=== PATIENT | female | born 1955 | race Caucasian/White ===

== ENCOUNTER 2016-08-10 18:02 | Emergency (ER) | payer MEDICARE, BC ==
[~2016-08-10] VITALS: Ht 167.6 cm; Wt 113.6 kg
[~2016-08-10 18:02] MED LIST: AMIODARONE 900 MG INJ ONE; DEXTROSE 5% WATER 500 ML BAG ONE; DOPamine-D5W 1.6 MG/ML 250 ML ONE; EPINEPHrine 0.1 MG/ML SYG ONE; ETOMIDATE 20 MG INJ ONE; NA BICARBONATE 8.4% 50 ML SYG ONE; ROCURONIUM 50 MG INJ ONE
[2016-08-10 18:03] VITALS: Ht 167.6 cm; Wt 113.6 kg
[2016-08-10] MEDS ORDERED: ROCURONIUM 50 MG INJ IV STA (18:12)
[2016-08-10] MEDS ORDERED: ETOMIDATE 20 MG INJ IV STA (18:12)
[2016-08-10] MEDS ORDERED: MIDAZOLAM (DRIP) 50 mg/50 mL 50 ML IV STA (18:12)
[2016-08-10] MEDS ORDERED: VECURONIUM 100 MG in DEXTROSE 5% 100 ML IV ONE (18:12)
[2016-08-10] MEDS ORDERED: SODIUM CHLORIDE 0.9% 500 ML BAG IV* STA (18:12)
[2016-08-10] MEDS ORDERED: SOD CHLORIDE 0.9% 1,000 ML IV STA ×2 (18:12)
[2016-08-10] MEDS ORDERED: AMIODARONE 900MG/D5W DRIP 500 ML IV STA (18:17)
[2016-08-10] MEDS ORDERED: FENTAnyl (DRIP) 1000 mcg/100mL 100 ML IV ONE (18:30)
[2016-08-10] MEDS ORDERED: MAGNESIUM SULFATE 2 GM/50 ML 50 ML IVPB ONE (18:30)
[2016-08-10 18:52] LABS: ADD SCAN DIFF NO
[2016-08-10 18:54] LABS: ABNORMAL IP MESSAGE 1; HEMATOCRIT 50.3 % (37.0-47.0); HEMOGLOBIN 15.4 g/dl (12.0-16.0); MEAN CORPUSCULAR HEMOGLOBIN 28.9 pg (29.0-33.0); MEAN CORPUSCULAR HGB CONC 30.6 g/dl (32.0-37.0); MEAN CORPUSCULAR VOLUME 94.4 fl (82.0-101.0); MEAN PLATELET VOLUME 12.7 fl (7.4-10.4); PLATELET COUNT 197 10^3/UL (140-415); RED BLOOD COUNT 5.33 10^6/ul (4.20-5.40); RED CELL DISTRIBUTION WIDTH 14.4 % (11.5-14.5)
[2016-08-10] MEDS ORDERED: NORepinephrine 8MG/250 ML (PMX 250 ML ONE (18:55)
[2016-08-10] MEDS ORDERED: NORepinephrine 8MG/250 ML (PMX 250 ML IV STA (19:01)
[2016-08-10 19:14] LABS: INR 1.45; PROTIME 17.7 Sec (12.2-14.2); PT RATIO 1.4
[2016-08-10 19:17] LABS: BASOPHIL # 0.1 10^3/ul (0.0-0.1); LYMPHOCYTES # 4.9 10^3/ul (0.8-2.9); MONOCYTE # 0.4 10^3/ul (0.3-0.9); NEUTROPHIL # 0.6 10^3/ul (1.6-7.5)
--- NOTE | 2016-08-10 19:31 | ERA ---
ER Documentation Chief Complaint Date/Time DATE: 08/10/16 TIME: 19:24 Chief Complaint HPI 60-year-old female unknown past medical history who presents with V. fib cardiac arrest in the field. It appears that she was at a restaurant and slumped over. EMS response with less than 10 minutes. No bystander CPR. The patient had defibrillation 3, epinephrine 4, amiodarone bolus with return of spontaneous circulation. The patient had a Lm airway placed. Upon arrival the patient had no spontaneous movement, the patient had bradycardia and hypotension. Remainder of HPI is limited, patient is critical. No prior visits. ROS Critical patient Allergies Allergies: Coded Allergies: Unknown: Unable to obtain (Unverified , 08/10/16) PMhx/Soc Unknown FmHx Unknown Physical Exam Vitals Vital Signs Date Time Temp Pulse Resp B/P Pulse Ox O2 Delivery O2 Flow Rate FiO2 08/10/16 20:50 81 20 63 100 08/10/16 18:46 56 20 78 100 Physical Exam General: Unresponsive Head: Normocephalic, atraumatic Eyes: Eyes are moving slightly from side to side, mildly dilated, limited reactive ENT: Moist mucous membranes Neck: Supple, no lymphadenopathy Respiratory: Agonal respirations, rhonchi bilaterally Cardiovascular: Bradycardia with faint pulses distally no murmurs Abdominal: Soft, non-protuberant, no pulsatile mass : Deferred MSK: No spontaneous motor activity Neurologic: No spontaneous neurologic activity Skin: No evidence of trauma Result Diagram: 08/10/16190908/10/162049 Results 24 hrs Laboratory Tests Test 08/10/16 18:12 08/10/16 18:20 08/10/16 19:10 08/10/16 20:45 Blood Gas Specimen Source Blood arterial Blood arterial Arterial Blood Date Drawn 08/10/2016 8:00:57 PM 08/10/2016 9:05:10 PM Arterial Blood pH (Temp corrected) 6.992 7.241 Arterial Blood pCO2 (Temp correct) 49.1mmhg 58.2mmhg Arterial Blood pO2 (Temp corrected) 68.3mmHG 41.8mmHG Arterial Blood HCO3 11.6mmol/L 24.7mmol/L Arterial Blood Base Excess -19.7mmol/L -3.9mmol/L Arterial Blood Oxygen Saturation 83.3mmHG 72.6mmHG Leonidas Test ACCEPTAB ACCEPTAB Arterial Blood Gas Puncture Site Right Radial Right Radial Arterial Blood Carboxyhemoglobin 0.3% 0.3% Arterial Blood Methemoglobin 0.5% 0.4% Blood Gas A-a O2 Differential 595.6mmHg 615.6mmHg Oxyhemoglobin Percent 82.6% 72.1% Total Hemoglobin 14.2g/dl 13.5g/dl Blood Gas Temperature 37.0C 36.0C Blood Gas Respiration Rate 20.0 20.0 Blood Gas Actual Respiration Rate 20 20 Blood Gas Modality VENT - AC VENT - AC FiO2 100.0% 100.0% Blood Gas Tidal Volume 500.0mL 550.0mL Blood Gas Low PEEP Setting 5.0cmH2O 5.0cmH2O Blood Gas Critical Value Read Back SUN GARSIA RN Blood Gas Notified Whom [facility] Blood Gas Notified Time 08/10/2016 8:08:55 PM 08/10/2016 9:32:54 PM Urine Color DK. BROWN Urine Clarity CLOUDY Urine pH 5.0 Urine Specific [place] >=1.030 Urine Ketones TRACE Urine Nitrite NEGATIVE Urine Bilirubin 2+ Urine Ictotest NEGATIVE Urine Urobilinogen 0.2 E.U./dL Urine Leukocyte Esterase NEGATIVE Urine Microscopic RBC >200/HPF Urine Microscopic WBC 0-2/HPF Urine Epithelial Cells OCCASIONAL Urine Amorphous Urates MANY Urine Hemoglobin 3+ Urine Glucose NEGATIVE% Urine Total Protein 1+ Urine Opiates Screen NEGATIVE Urine Barbiturates NEGATIVE Urine Amphetamines Screen NEGATIVE Urine Benzodiazepines Screen NEGATIVE Urine Cocaine Screen NEGATIVE Urine Cannabinoids NEGATIVE White Blood Count 6.010^3/ul Red Blood Count 5.3310^6/ul Hemoglobin 15.4g/dl Hematocrit 50.3% Mean Corpuscular Volume 94.4fl Mean Corpuscular Hemoglobin 28.9pg Mean Corpuscular Hemoglobin Concent 30.6g/dl Red Cell Distribution Width 14.4% Platelet Count 13675^3/UL Mean Platelet Volume 12.7fl Neutrophils % 10.0% Lymphocytes % 82.0% Monocytes % 7.0% Eosinophils % 1.8% Basophils % 1.0% Nucleated Red Blood Cells % 9.0/100WBC Neutrophils # 0.610^3/ul Lymphocytes # 4.910^3/ul Monocytes # 0.410^3/ul Eosinophils # 0.110^3/ul Basophils # 0.110^3/ul Nucleated Red Blood Cells # 0.110^3/ul Prothrombin Time 17.7Sec Prothrombin Time Ratio 1.4 INR International Normalized Ratio 1.45 Activated Partial Thromboplast Time 48.0Sec Test 08/10/16 20:50 Sodium Level 142mmol/L Potassium Level 3.8mmol/L Chloride Level 110mmol/L Carbon Dioxide Level 14mmol/L Anion Gap 22 Blood Urea Nitrogen 13mg/dl Creatinine 1.17mg/dl Glucose Level 296mg/dl Lactic Acid Level 10.4mmol/L Calcium Level 8.1mg/dl Phosphorus Level 9.2mg/dl Magnesium Level 3.1mg/dl Total Bilirubin 0.1mg/dl Direct Bilirubin 0.00mg/dl Indirect Bilirubin 0.1mg/dl Aspartate Amino Transf (AST/SGOT) 2384IU/L Alanine Aminotransferase (ALT/SGPT) 2001IU/L Alkaline Phosphatase 155IU/L Troponin I 1.920ng/ml Total Protein 5.3g/dl Albumin 2.8g/dl Globulin 2.50g/dl Albumin/Globulin Ratio 1.12 Free Thyroxine Index 1.84ug/ml Thyroxine (T4) 4.4ug/dl Triiodothyronine (T3) Uptake 41.8% Salicylates Level < 1.0mg/dl Acetaminophen Level < 10.0ug/ml Ethyl Alcohol Level < 10.0mg/dl Current Medications Medications (Trade) Dose Ordered Sig/Benjamín Route PRN Reason Start Time Stop Time Status Last Admin Dose Admin Sodium Chloride 1,000 ml @ 1,000 mls/hr Q1H STAT IV 08/10/16 18:12 08/10/16 19:11 DC 08/10/16 18:12 Sodium Chloride (NS) 1,000 ml @ 1,000 mls/hr Q1H STAT IV 08/10/16 18:12 08/10/16 19:11 DC 08/10/16 18:12 Rocuronium Hardesty (Zemuron) 100 mg ONCE STAT IV 08/10/16 18:12 08/10/16 18:17 DC Etomidate 20 mg 20 mg ONCE STAT IV 08/10/16 18:12 08/10/16 18:17 DC Midazolam HCl 50 ml @ 3 mls/hr ONCE STAT IV 08/10/16 18:12 08/11/16 10:51 08/10/16 20:25 Fentanyl (Sublimaze) 100 ml @ 2.5 mls/hr TITRATE ONCE IV 08/10/16 18:30 08/12/16 10:29 08/10/16 20:32 Sodium Chloride 500 ml 500 ml ONCE STAT IV* 08/10/16 18:12 08/10/16 18:17 DC 08/10/16 20:37 Vecuronium Hardesty 100 mg/ Dextrose 100 ml @ 0 mls/hr Q0M ONCE IV 08/10/16 18:12 08/10/16 18:17 DC 08/10/16 20:41 Amiodarone HCl 500 ml @ 0 mls/hr ONCE STAT IV 08/10/16 18:17 08/10/16 18:18 DC 08/10/16 18:25 Magnesium Sulfate 50 ml @ 25 mls/hr ONCE ONCE IVPB 08/10/16 18:30 08/10/16 20:29 DC 08/10/16 18:25 Norepinephrine 250 ml @ ud STK-MED ONCE .ROUTE 08/10/16 18:55 08/10/16 18:56 DC Norepinephrine 250 ml @ 7.5 mls/hr ONCE STAT IV 08/10/16 19:01 08/12/16 04:20 08/10/16 18:50 Sodium Bicarbonate/ Dextrose (Na Bicarb/D5W) 1,150 ml @ 125 mls/hr Q9H12M STAT IV 08/10/16 20:32 08/11/16 05:43 08/10/16 21:27 Sodium Bicarbonate 50 ml 50 ml ONCE ONCE IV 08/10/16 21:30 08/10/16 21:31 DC 08/10/16 21:55 Calcium Gluconate/ Sodium Chloride (Ca Gluc/NS) 110 ml @ 110 mls/hr ONCE ONCE IVPB 08/10/16 21:30 08/10/16 22:29 Hydrocortisone 100 mg 100 mg ONCE ONCE IV 08/10/16 21:30 08/10/16 21:31 DC 08/10/16 21:23 Dopamine HCl/ Dextrose 250 ml @ 0 mls/hr ONCE STAT IV 08/10/16 21:24 08/10/16 21:25 DC 08/10/16 21:54 Vasopressin/ Dextrose (Vasostrict/D5W) 60 ml @ 0 mls/hr Q12H IV 08/10/16 22:30 Procedures/MDM EKG, MONITORS, & DIAGNOSTIC IMAGING: EKG #1 EKG: I reviewed and interpreted a 12-lead EKG. Rhythm: Junctional rhythm, bradycardia Ectopy: None Intervals: No abnormalities ST segments: No elevations or depressions T waves: No contiguous inversions EKG #2 EKG: I reviewed and interpreted a 12-lead EKG. Rhythm: Junctional rhythm, bradycardia Ectopy: None Intervals: No abnormalities ST segments: No elevations or depressions T waves: No contiguous inversions Rhythm strip: Rate/Rhythm: Junctional rhythm, bradycardia Impression: As noted above Chest x-ray: I reviewed and interpreted a 1 view of the chest Mediastinum: No enlargement Cardiac silhouette: cardiomegaly Airspace: Interstitial process bilaterally consistent with pulmonary edema Bones: No evidence of fracture Endotracheal tube right mainstem, repeat chest x-ray show improvement of placement after being pulled back to [address] brain: IMPRESSION: 1. No acute intracranial hemorrhage, transcortical infarction or mass effect. 2. Minimal intracranial atherosclerosis and mild chronic small vessel ischemic changes. 3. Mild generalized cerebral volume loss. RPTAT: HFN PROCEDURES: Intubation Note: Indication: Airway protection Consent: This was an emergent situation, implied consent was observed RSI Medications: Etomidate 20 mg, Rocuronium 100 mg Tube size: 7.5 Secured at: Initially 23 of the lip pulled back eventually to 20 at the lip Procedure: Endotracheal intubation was performed. The patient was preoxygenated with supplemental oxygen, the room was set up with emergent airway equipment including [id number], suction, adjunct airways. Direct visualization of the cords was performed with direct laryngoscopy using a video scope, insertion of the endotracheal tube through the cords was visualized by the cotton machine operator. Bilateral breath sounds were auscultated, color change was observed. The tube was then secured in a postintubation chest x-ray was ordered. The patient tolerated the procedure well there were no complications. Central Line Note: Consent: Critical patient Indication: Critically ill patient requiring specialized vascular access for fluid or pressor management Location: Right femoral vein Procedure: Sterile procedure was observed throughout insertion of the central line. The insertion site was prepped with sterile solution. Ultrasound-guided identification of the vein was performed. Insertion of a needle into the vein was obtained with return of dark, nonpulsatile blood. The wire was then threaded through the needle without complication. The wire was then identified within the vein using ultrasound. A small skin incision was made, the needle was removed intact, dilation of the vein was performed and insertion of a triple lumen catheter was completed. The catheter was then sutured to the skin. All 3 ports sheela back and flushed without difficulty. A sterile dressing was applied. The patient tolerated the procedure well there were no complications. Emergency Bedside Ultrasound: Indication: Central line Probe Type: Linear Findings: Dynamic ultrasound utilizing compressive technique with both linear and horizontal views, additional images showing wire within the venous system were obtained. The images were saved along with patient information on a paper chart to be scanned into EMR. The patient tolerated the procedure well and there were no complications. LAB INTERPRETATION: No anemia, normal white count, elevated troponin, significant elevation of lactic acid, renal insufficiency, shock liver MEDICAL DECISION MAKING: The patient presents with ventricular fibrillation arrest in the field. The patient has return of spontaneous circulation with multiple episodes of defibrillation, epinephrine, amiodarone. Upon arrival the patient does not have significant or substantial spontaneous neurologic activity. The patient was intubated for airway protection a central line was placed. Emergent phone call to interventional cardiology given V. fib arrest with return of spontaneous circulation with high likelihood of cardiac etiology. Based on sudden cardiac arrest algorithm with ROSC; the patient does not meet any significant criteria for unlikely benefit for coronary intervention. The patient had a witnessed arrest with an initial rhythm of ventricular fibrillation. The patient had CPR with less than 10 minutes of cardiac arrest with less than 30 minutes of return of spontaneous circulation. The patient does not currently have ongoing CPR. The patient's age is less than 86 with no history of end-stage renal disease. There are no other etiology at this point for other reasons for V. fib cardiac arrest, no evidence of trauma or sepsis. I discussed this above rationale with Dr. Huynh, social media content specialist compensation director at 6:15 PM. He states that he does not wish to take the patient to the [facility] at this point. He wishes to have further laboratory testing, information and CT imaging before making that decision. I will continue to update him and he was again updated at 7:11 PM. I will continue to push for interventional cardiology take this patient to the [facility] as I believe she would benefit from emergent angiography as this is likely cardiogenic given her junctional rhythm in V. fib arrest. I am concerned for significant cardiac ischemia. ER COURSE: Upon arrival the patient had pulses but was hypotensive. She was intubated, central line was placed and the patient was started on levo. She did not require pacing, continue with pressor support at this time. Please see documentation in conversation with interventional cardiology as documented above. Hypothermia protocol was initiated. It should be noted that there is significant delay for the patient's chemistry profile. It appears that the patient's blood has hemolyzed greater than 3 times despite being drawn from the central line. We will continue to work with laboratory however this is a significant delay in the patient's care. Dr. Huynh has been updated 3 times during this course. The patient continues to have no evidence of alternative diagnosis. The patient is currently on amiodarone, magnesium provided. The patient was given calcium prior to arrival. The patient was started on a bicarbonate drip. The patient does have a pH less than 7 which is her first qualification of poor prognosticator for interventional procedure. I will continue to discuss the case with Dr. Huynh. The patient continued to decompensate and became progressively hypotensive, incontinent. The patient has increasing bleeding from NG tube and concern for DIC. DIC panel sent. Pending. The patient was started on dopamine, stress dose steroids and continues to deteriorate. I had a final conversation with Dr. Huynh. Given the patient's decompensation, the patient is not a candidate for [facility] at this time the patient is too unstable and resuscitation efforts are likely to be futile. The patient's sister has been updated multiple times during this ER course. She continues to wish for full code. I do not believe this is consistent with pulmonary embolism given evidence of pulmonary edema, again this is most likely cardiogenic in nature. The patient is not a candidate for aspirin or heparin given concern for DIC. I kept the patient and/or family informed of laboratory and diagnostic imaging results throughout the emergency room course. DISPOSITION PLAN: ICU CONSULTATION: Accepting care team and consultations: I discussed the current laboratory data, diagnostic imaging and emergency care provided. Admitting team: Dr. Cruz Admitting team indication: Insurance directed Consulting services: Interventional cardiology Dr. Huynh Critical Care Note: Total time: 78 minutes Indication/Organ System Threat: Shock, V. fib arrest with return of spontaneous circulation I spent the above amount of critical care time with the patient, not including billable procedures. This included chart review, consultations, repeat bedside evaluations, and titration of appropriate medications to prevent cardiopulmonary or respiratory collapse. Of note prior to transfer to ICU the patient had a cardiac arrest again. ACLS was initiated by Dr. Ro. Please see his documentation for code. Departure Diagnosis: Primary Impression: Cardiac arrest with ventricular fibrillation Additional Impressions: Metabolic acidosis Encephalopathy acute Lactic acidosis Shock liver Acute pulmonary edema Condition: Critical JUAN PERSON MD August 10, 2016 19:31
[2016-08-10 19:39] LABS: EOSINOPHILS # 0.1 10^3/ul (0.0-0.5); EOSINOPHILS % 1.8 % (0.0-7.0); NUCLEATED RED BLOOD CELLS # 0.1 10^3/ul (0.0-0.0)
--- NOTE | 2016-08-10 19:47 | RADRPT ---
PROCEDURE: CT Brain without. CLINICAL INDICATION: Altered mental status. TECHNIQUE: A CT of the brain was performed on multidetector high-resolution CT scanner utilizing a xial sections from the skull base through the vertex without contrast. The scan was reviewed in sof t tissue brain and high frequency resolution bone algorithm windows. Images were reviewed on a high -resolution PACS workstation. One or more the following does reduction techniques were utilized: Aut omated exposure control, adjustment of the mA/ or kV according to patient's size, or use of iterativ e reconstruction technique. The exam CTDI = 45.01 mGy and the DLP = 720.23 mGy-cm. COMPARISON: None available. FINDINGS: The ventricles and sulci are mildly prominent indicative of volume loss. There is no intracranial he morrhage, mass effect or midline shift. No abnormal intra-axial or extra-axial fluid collections ar e seen. The barrera/white matter differentiation is preserved. There are mild scattered foci of hypoattenuation in the white matter, which are nonspecific in etiol ogy but likely reflect chronic small vessel ischemic changes. There are minimal intracranial vascul ar calcifications consistent with atherosclerosis. The visualized paranasal sinuses demonstrate foca l opacification of the right ethmoid air cells. The mastoid air cells are essentially clear. IMPRESSION: 1. No acute intracranial hemorrhage, transcortical infarction or mass effect. 2. Minimal intracranial atherosclerosis and mild chronic small vessel ischemic changes. 3. Mild generalized cerebral volume loss. RPTAT: HFN .Naeem Rivera MD, MD Date Time Electronically viewed and signed by .Naeem Rivera MD, MD on 08/10/2016 19:47 .N/
--- NOTE | 2016-08-10 19:49 | RADRPT ---
PROCEDURE: XR Chest. CLINICAL INDICATION: Endotracheal tube placement TECHNIQUE: Single frontal chest x-ray. COMPARISON: None. FINDINGS: Endotracheal tube tip is at the level of the gregory. Nasogastric tube tip is in the stomach. Patch y bilateral pulmonary opacities are noted, greater on the right. No pneumothorax or pleural effusio n is identified. Cardiomediastinal silhouette is within normal limits. The osseous structures are remarkable for degenerative spondylosis of the spine. IMPRESSION: 1. Endotracheal tube tip is at the level of the gregory - 2-3 cm tube retraction is recommended. 2. Nasogastric tube tip is within the stomach. 3. Patchy bilateral pulmonary opacities are noted - considerations include pneumonia and pulmonary edema. RPTAT: QQ .Philip Nuñez MD, Date Time Electronically viewed and signed by .Philip Nuñez MD, on 08/10/2016 19:49 .R/
--- NOTE | 2016-08-10 19:50 | RADRPT ---
PROCEDURE: XR Chest. CLINICAL INDICATION: Endotracheal tube repositioning TECHNIQUE: Single frontal chest x-ray. COMPARISON: 08/10/2016, 06:30 p.m. FINDINGS: Endotracheal tube has been pulled back, and is now in good position with tip 2 cm above the gregory. Nasogastric tube tip is within the stomach. Patchy bilateral pulmonary opacities are grossly uncha nged. There is no pneumothorax or pleural effusion. Cardiomediastinal silhouette is within normal limits. The osseous structures are remarkable for degenerative spondylosis of the spine. IMPRESSION: 1. Endotracheal and nasogastric tubes now in good position. 2. Patchy bilateral pulmonary opacities are grossly unchanged - considerations include pneumonia an d/or pulmonary edema. RPTAT: QQ .Philip Nuñez MD, Date Time Electronically viewed and signed by .Philip Nuñez MD, on 08/10/2016 19:50 .R/
[2016-08-10 19:58] LABS: ADD UMIC YES; URINE BILIRUBIN (Dip) 2+ (NEGATIVE); URINE BLOOD (Dip) 3+ (NEGATIVE); URINE COLOR DK. BROWN (YELLOW); URINE GLUCOSE (Dip) NEGATIVE (NEGATIVE); URINE KETONES (Dip) TRACE (NEGATIVE); URINE LEUKOCYTE ESTERASE (Dip) NEGATIVE (NEGATIVE); URINE NITRITE (Dip) NEGATIVE (NEGATIVE); URINE TOTAL PROTEIN (Dip) 1+ (NEGATIVE); URINE UROBILINOGEN (Dip) 0.2 E.U./dL (0.1-1.0)
[2016-08-10 20:09] LABS: AADO2 Arterial 595.6 mmHg (7.0-24.0); Allen Test ACCEPTAB; Arterial Base Excess -19.7 mmol/L (-3.0-3); Arterial COHb 0.3 % (0.0-3.0); Arterial Fraction of Oxyhgb 82.6 % (93.0-99.0); Arterial HCO3 11.6 mmol/L (22.0-26.0); Arterial MetHb 0.5 % (0.0-1.5); Arterial Total Hemglobin 14.2 g/dl (12.0-18.0); MODE VENT - AC
[2016-08-10 20:18] LABS: ICTOTEST NEGATIVE (NEGATIVE)
[2016-08-10 20:19] LABS: URINE RBCS >200 /HPF (0)
[2016-08-10] MEDS ORDERED: SODIUM BICARBONATE (IV ADD) 150 MEQ in DEXTROSE 5% 1,000 ML IV STA (20:32)
[2016-08-10 20:36] LABS: BARBITURATES NEGATIVE (NEGATIVE); BENZODIAZEPINES NEGATIVE (NEGATIVE); CANNABINOIDS NEGATIVE (NEGATIVE); COCAINE NEGATIVE (NEGATIVE); OPIATES NEGATIVE (NEGATIVE)
[2016-08-10 21:23] LABS: ALBUMIN 2.8 g/dl (3.3-4.9); CHLORIDE 110 mmol/L (97-110); SODIUM 142 mmol/L (135-144)
[2016-08-10 21:24] LABS: POTASSIUM 3.8 mmol/L (3.5-5.1)
[2016-08-10] MEDS ORDERED: DOPamine-D5W 1.6 MG/ML 250 ML IV STA (21:24)
[2016-08-10 21:25] LABS: ANION GAP 22 (8-16); BILIRUBIN,INDIRECT 0.1 mg/dl (0-1.1); BILIRUBIN,TOTAL 0.1 mg/dl (0.2-1.3); CARBON DIOXIDE 14 mmol/L (21-31); CREATININE 1.17 mg/dl (0.44-1.00)
[2016-08-10 21:26] LABS: ALBUMIN/GLOBULIN RATIO 1.12; ALKALINE PHOSPHATASE 155 IU/L (42-121); BLOOD UREA NITROGEN 13 mg/dl (7-20); CALCIUM 8.1 mg/dl (8.4-10.2); GLUCOSE 296 mg/dl (70-220); PHOSPHORUS 9.2 mg/dl (2.5-4.9); TOTAL PROTEIN 5.3 g/dl (6.1-8.1)
[2016-08-10 21:27] LABS: MAGNESIUM 3.1 mg/dl (1.7-2.5)
[2016-08-10] MEDS ORDERED: NA BICARBONATE 8.4% 50 ML SYG IV ONE (21:30)
[2016-08-10] MEDS ORDERED: CALCIUM GLUCONATE 10% 1 GM in SOD CHLORIDE 0.9% 100 ML IVPB ONE (21:30)
[2016-08-10] MEDS ORDERED: HYDROCORTISONE 100 MG INJ IV ONE (21:30)
[2016-08-10 21:33] LABS: AADO2 Arterial 615.6 mmHg (7.0-24.0); Allen Test ACCEPTAB; Arterial Base Excess -3.9 mmol/L (-3.0-3); Arterial COHb 0.3 % (0.0-3.0); Arterial Fraction of Oxyhgb 72.1 % (93.0-99.0); Arterial HCO3 24.7 mmol/L (22.0-26.0); Arterial MetHb 0.4 % (0.0-1.5); Arterial Total Hemglobin 13.5 g/dl (12.0-18.0); MODE VENT - AC
[2016-08-10 21:33] LABS: ACETAMINOPHEN < 10.0 ug/ml (10.0-30.0); ETHANOL < 10.0 mg/dl; SALICYLATE < 1.0 mg/dl (5.0-30.0)
[2016-08-10 21:39] LABS: ALANINE AMINOTRANSFERASE 2001 IU/L (13-69)
[2016-08-10 22:00] LABS: ASPARTATE AMINO TRANSFERASE 2384 IU/L (15-46)
[2016-08-10 22:13] LABS: T3 UPTAKE 41.8 % (23.5-40.5)
[2016-08-10 22:22] LABS: PLATELET COUNT 182 10^3/UL (140-415)
[2016-08-10] MEDS ORDERED: VASOPRESSIN 60 UNIT in DEXTROSE 5% 57 ML IV SCH (22:30)
[2016-08-10 22:40] LABS: INR 3.15; PROTIME 32.8 Sec (12.2-14.2); PT RATIO 2.6
[2016-08-10 22:45] VITALS: TEMP 96.8
[2016-08-10 23:16] LABS: FIBRIN SPLIT PRODUCT >80 and <160 ug/ml (<10)
[2016-08-10 23:26] VITALS: BP 45/34; PULSE 91; RESP 20
--- NOTE | 2016-08-11 00:20 | EN ---
Date/Time of Note Date/Time of Note DATE: 08/11/16 TIME: 00:14 ER Progress Note I was signed out this patient by the departing physician Dr. Morgan. Patient was critically ill and maxed out on dopamine and levo fed. Her blood pressure was still dropping with a map below 65. I ordered vasopressin as an additional pressor. Patient was already on a drip of amiodarone, fentanyl and Versed as well. I counseled the sedation as well as the hypothermia protocol. Patient had faint central pulses at that time. I remained at the bedside for some time to monitor for resolution and she lost pulses. CPR was initiated CPR note: High-quality CPR was immediately started patient was administered 1 mg of epinephrine. 18 the patient's blood gas had improved but still been acidotic. Sodium bicarbonate was also administered. High-quality CPR was performed with epinephrine every 3 minutes for multiple rounds of CPR each time. I perform pulse checks sparely. On the first 2 pulse and rhythm checks the patient had pulseless electrical activity with no pulses. On the third pulse check the patient regained pulses. I change the ventilator settings as the patient was desaturating on the vent to respiratory rate of 24 and I turned the tidal volume down to 450 while keeping the PEEP. Patient's oxygenation did improve on this. She remained with pulses for some time. Her blood pressure continued to decrease maxed out on 3 different pressors. Neuro status remained comatose with fixed dilated pupils. Heart rate begin to decrease while I was at the bedside feeling her pulses. Pulses became more faint even with Doppler then again did lose pulses. CPR was initiated. CPR note: High-quality CPR was initiated and I am immediately administered 1 mg of epinephrine myself. CPR was continued and sodium bicarbonate was also given. Multiple rounds of high quality CPR were performed with minimization of interruptions and frequent pulse checks. CPR was performed for a total of 20 minutes with no no pulses by Doppler or palpation. Unable to regain oxygen saturation. Heart rate in the monitor was PEA with a heart rate of 30. Time of was called at 0003. Patient's friend was present in the emergency room and I notified her. TOD RANDALL DO August 11, 2016 00:20
[2016-08-11 00:31] LABS: D-DIMER > 10000.00 ng/ml (<460)
[2016-08-11 00:34] LABS: PARTIAL THROMBOPLASTIN TIME 100.2 Sec (25.0-35.0)
== END 2016-08-11 01:30 | disposition expired ==
LOC: E/R 18:02
DX: I46.9 Cardiac arrest, cause unspecified (principal); I49.01 Ventricular fibrillation; E87.2 Acidosis; G04.30 Acute necrotizing hemorrhagic encephalopathy, unspecified; R57.9 Shock, unspecified; J81.0 Acute pulmonary edema; R41.82 Altered mental status, unspecified
CPT/HCPCS: 31500; 36415; 36556; 36600; 51702; 70450; 71010; 76937; 80053; 80306; 80307; 81001; 82803; 83605; 83735; 84100; 84436; 84479; 84484; 85025; 85049; 85362; 85378; 85384; 85610; 85670; 85730; 87040; 87086; 92950; 93005; 94002; 96365; 96375; 99291; J0171; J0282; J0610; J1265; J1720; J2250; J3010; J3475; J7030; J7040; J7060; J7070; 81003